=== PATIENT | female | born 1985 | race Two or more races ===

== ENCOUNTER 2020-07-29 10:58 | Emergency (ER) | payer SELFPAY ==
[~2020-07-29] VITALS: Ht 154.9 cm; Wt 80.3 kg
--- NOTE | 2020-07-29 11:28 | NUR ---
PT AMBULATORY TO ROOM 7 W/ C/O BROWN SPOTTING AND CRAMPING. "I FEEL LIKE I'M GOING TO GET MY PERIOD". BROWN SPOTTING STARTED TODAY. LMP 06/19/2020 A0 PT RESTING ON GURNEY. NADN. MONITORS APPLIED. WARM BLANKET PROVIDED.
--- NOTE | 2020-07-29 11:34 | NUR ---
PER ERP DR. OCHOA NO NEED FOR UA SAMPLE.
[2020-07-29 11:35] LABS: BASOPHILS % (AUTO) 1 % (0-1); EOSINOPHILS % (AUTO) 4 % (1-7); LYMPHOCYTES % (AUTO) 38 % (22-44); MD NO; MEAN CORPUSCULAR HEMOGLOBIN 32.4 pg (27.0-34.8); MEAN CORPUSCULAR HGB CONC 33.3 g/dL (32.4-35.8); MONOCYTES % (AUTO) 5 % (2-9); NEUTROPHILS % (AUTO) 52 % (42-75); PLATELET COUNT 277 x10^3/uL (130-400); RED BLOOD COUNT 3.93 x10^6/uL (3.82-5.3); RED CELL DISTRIBUTION WIDTH 14.6 % (9.6-15.2)
[2020-07-29 11:46] LABS: ALBUMIN 3.7 g/dL (3.4-5.0); ANION GAP 8 mmol/L (5-15); CALCIUM 8.8 mg/dL (8.5-10.1); CHLORIDE 106 mmol/L (98-107)
[2020-07-29 11:52] LABS: CREATININE 0.97 mg/dL (0.55-1.02)
[2020-07-29 12:47] LABS: MICROSCOPIC AUTO
--- NOTE | 2020-07-29 12:51 | NUR ---
PT CHART REVIEWED AND PLACED FOR RECHECK.
[2020-07-29 12:52] VITALS: BP 136/92
--- NOTE | 2020-07-29 12:52 | NUR ---
PT RESTING ON GURNEY. NADN. CALDERON.
== END 2020-07-29 13:20 | disposition home or self-care (01) ==
LOC: ED 13:00
DX: O03.9 Complete or unspecified spontaneous abortion without complication (principal)
CPT/HCPCS: 36415; 76801; 80048; 81001; 82040; 84702; 85025; 86901; 87086; 99284

== ENCOUNTER 2020-10-14 15:34 | Emergency (ER) | payer SELFPAY ==
[~2020-10-14] VITALS: Ht 154.9 cm; Wt 79.3 kg
--- NOTE | 2020-10-14 16:00 | NUR ---
PT AMBULATES FROM LOBBY TO ROOM WITH STEADY GAIT.
--- NOTE | 2020-10-14 16:28 | NUR ---
DR WELSH AT BS WITH PT FOR HISTORY AND ASSESSMENT.
[2020-10-14 16:49] LABS: BASOPHILS % (AUTO) 1 % (0-1); EOSINOPHILS % (AUTO) 2 % (1-7); LYMPHOCYTES % (AUTO) 29 % (22-44); MEAN CORPUSCULAR HEMOGLOBIN 33.1 pg (27.0-34.8); MEAN CORPUSCULAR HGB CONC 33.2 g/dL (32.4-35.8); MEAN PLATELET VOLUME 9.3 fL (7.4-10.4); MONOCYTES % (AUTO) 6 % (2-9); NEUTROPHILS % (AUTO) 62 % (42-75); PLATELET COUNT 266 x10^3/uL (130-400); RED BLOOD COUNT 3.82 x10^6/uL (3.82-5.3); RED CELL DISTRIBUTION WIDTH 14.1 % (9.6-15.2)
[2020-10-14 17:02] LABS: ALANINE AMINOTRANSFERASE 25 U/L (12-78); ALBUMIN 3.3 g/dL (3.4-5.0); ANION GAP 7 mmol/L (5-15); CALCIUM 9.6 mg/dL (8.5-10.1); CHLORIDE 106 mmol/L (98-107); CREATININE 0.79 mg/dL (0.55-1.02)
[2020-10-14 17:18] LABS: ALKALINE PHOSPHATASE 49 U/L (45-117); BILIRUBIN,TOTAL 0.2 mg/dL (0.2-1.0); TOTAL PROTEIN 7.3 g/dL (6.4-8.2)
[2020-10-14 17:56] LABS: MICROSCOPIC AUTO
[2020-10-14 19:24] VITALS: BP 112/77
--- NOTE | 2020-10-14 19:24 | NUR ---
PT D/C WITH D/C SUMMARY AND SCRIPTS. ALL QUESTIONS ANSWERED. PT AMBULATES TO REGISTRATION DESK WITH STEADY GAIT FOR D/C HOME WITH PARTNER AND DENIES ANY OTHER NEEDS PERTAINING TO THIS VISIT.
== END 2020-10-14 19:27 | disposition home or self-care (01) ==
LOC: ED 16:00
DX: O23.11 Infections of bladder in pregnancy, first trimester (principal); Z3A.01 Less than 8 weeks gestation of pregnancy
CPT/HCPCS: 36415; 76801; 80053; 81001; 84702; 85025; 86901; 87086; 99284